=== PATIENT | female | born 1980 | race Caucasian/White ===

== ENCOUNTER 2022-07-04 23:13 | Emergency (ER) | payer OTHER ==
[2022-07-04 23:20] VITALS: BP 117/74; PULSE 85; RESP 18; TEMP 98.1; BMI 29.2
== END 2022-07-05 00:20 | disposition home or self-care (01) ==
LOC: JER 23:13
DX: U07.1 COVID-19 (principal)
CPT/HCPCS: 0241U-QW; 99282-25

== ENCOUNTER 2023-10-25 00:41 | Emergency (ER) | payer OTHER ==
[2023-10-25 00:49] VITALS: BMI 27.0
[2023-10-25] MEDS: LACTATED RINGERS SOLUTION 1000 ML INFUS.BAG IV ONE (01:48)
[2023-10-25] MEDS ORDERED: ACETAMINOPHEN INJECTION 100 ML IVPB ONE (01:53)
[2023-10-25 01:56] LABS: BASO % 0.6 % (0-2.0); EOS % 1.4 % (0-4.5); HEMATOCRIT 32.6 % (32.4-45.2); HEMOGLOBIN 10.8 GM/dL (10.7-15.3); LYMPH % 46.9 % (8-40); MCH 26.3 pg (25.7-33.7); MCHC 33.3 g/dl (32.0-36.0); MEAN CELL VOLUME 79.2 fl (80-96); MEAN PLT VOLUME 8.6 fl (7.5-11.1); MONO % 6.7 % (3.8-10.2); NEUT % 44.4 % (42.8-82.8); PLATELET COUNT 218 10^3/uL (134-434); RBC 4.12 M/mm3 (3.60-5.2); RDW 15.3 % (11.6-15.6)
[2023-10-25] MEDS: ACETAMINOPHEN 1000 MG/100 ML BAG IVPB ONE (01:57)
[2023-10-25 02:16] LABS: POTASSIUM 5.1 mmol/L (3.5-5.1)
[2023-10-25 02:18] LABS: CALCIUM 9.7 mg/dL (8.5-10.1); PH,URINE 5.5 (5.0-8.0); URINE APPEARANCE CLEAR; URINE BILIRUBIN NEGATIVE (NEGATIVE); URINE COLOR YELLOW; URINE GLUCOSE (UA) NEGATIVE (NEGATIVE); URINE KETONE NEGATIVE (NEGATIVE); URINE PROTEIN NEGATIVE (NEGATIVE); URINE UROBILINOGEN 0.2 mg/dL (0.2-1.0)
[2023-10-25 02:19] LABS: ALBUMIN 4.2 g/dl (3.4-5.0); EPI CELLS 7.7 /uL (0-25.1); HYALINE CASTS 0.29 /uL (0-3.1); URINE BACTERIA 10.4 /uL (0-1359); URINE LEUK ESTERASE TRACE (NEGATIVE); URINE NITRITE NEGATIVE (NEGATIVE); URINE RBC 2.3 /uL (0-23.9); URINE WBC 25.7 /uL (0-25.8)
[2023-10-25 02:20] LABS: BLOOD UREA NITROGEN 18.3 mg/dL (7-18)
[2023-10-25 02:22] LABS: CREATININE 0.6 mg/dL (0.55-1.3)
[2023-10-25 02:24] LABS: TOT PROT 8.1 g/dl (6.4-8.2)
[2023-10-25 02:26] LABS: BILIRUBIN,TOTAL 0.6 mg/dL (0.2-1)
[2023-10-25] MEDS: FAMOTIDINE 20 MG/50 ML IVPB 20 MG/50 ML MG IVPB ONE (02:57)
[2023-10-25] MEDS ORDERED: FAMOTIDINE 20 MG/50 ML IVPB 20 MG/50 ML MG IVPB ONE (02:59)
[2023-10-25 05:40] VITALS: BP 113/79; PULSE 59; RESP 13; TEMP 97.7
== END 2023-10-25 05:42 | disposition home or self-care (01) ==
LOC: JER 00:41
PROC: 3E033GC Introduction of Other Therapeutic Substance into Peripheral Vein, Percutaneous Approach (ICD-10-PCS; principal; 2023-10-25)
DX: K86.1 Other chronic pancreatitis (principal); R10.84 Generalized abdominal pain; R11.0 Nausea
CPT/HCPCS: 36415; 74177-TC; 80053; 80061; 81003; 83690; 83735; 84484; 84703; 85025; 87086; 93005; 93010; 99285-25; Q9967